=== PATIENT | female | born 1995 | race Caucasian/White ===

== ENCOUNTER 2020-10-27 11:34 | Outpatient (CLI) | payer OTHER, SELFPAY ==
[~2020-10-27] VITALS: Ht 162.6 cm; Wt 99.2 kg
[2020-10-27 11:58] VITALS: BP 132/75
[2020-10-27] MEDS ORDERED: ACET325C5 PO (12:06)
[2020-10-27] MEDS ORDERED: FOLI400T PO (12:06)
[2020-10-27] MEDS ORDERED: ASPI81CH33 PO (12:06)
[2020-10-27] MEDS ORDERED: NOXI1TAB PO (12:06)
[2020-10-27] MEDS ORDERED: CLAR10CA3 PO (12:06)
[2020-10-27] MEDS ORDERED: PRENTAB9 PO (12:06)
[2020-10-27 13:56] LABS: APPEARANCE, URINE CLEAR (CLEAR); BACTERIA, URINE AUTO NEGATIVE (NEGATIVE); BILIRUBIN, URINE AUTO NEGATIVE (NEGATIVE); BLOOD, URINE BLOOD NEGATIVE (NEGATIVE); COLOR, URINE COLORLESS (YELLOW); GLUCOSE, URINE (UA) AUTO NEGATIVE (NEGATIVE); KETONE, URINE AUTO NEGATIVE (NEGATIVE); LEUKOCYTE ESTERASE, URINE AUTO NEGATIVE (NEGATIVE); NITRITE, URINE AUTO NEGATIVE (NEGATIVE); PROTEIN, URINE AUTO NEGATIVE (NEGATIVE); RBC, URINE AUTO 0 /HPF (0-3); SQUAMOUS EPITHELIAL CELL UR AU 0 /HPF (0-6); UROBILINOGEN, URINE AUTO 0.2 mg/dL (0.0-2.0); WBC, URINE AUTO 0 /HPF (0-3)
[2020-10-27 15:23] LABS: CHLAMYDIA DNA AMPLIFICATION NEGATIVE (NEGATIVE); GC DNA AMPLIFICATION NEGATIVE (NEGATIVE)
== END 2020-10-27 13:50 | disposition home or self-care (01) ==
LOC: M LDO 11:34
PROVIDERS: ATTEND Registered Nurse
DX: O26.892 Other specified pregnancy related conditions, second trimester (principal); B37.3 Candidiasis of vulva and vagina; Z3A.22 22 weeks gestation of pregnancy
CPT/HCPCS: 81001; 87086; 87491; 87591; G0378; G0463

== ENCOUNTER 2021-02-15 08:41 | Outpatient (CLI) | payer OTHER ==
[~2021-02-15] VITALS: Ht 162.6 cm; Wt 102.9 kg
[~2021-02-15 08:41] MED LIST: ACET325C5 PO; ASPI81CH33 PO; CLAR10CA3 PO; FOLI400T13 PO; NOXI1TAB PO; PRENTAB9 PO
[2021-02-15 09:03] VITALS: BP 132/67
[2021-02-15 10:21] VITALS: BP 114/62
[2021-02-15 10:26] VITALS: BP 118/70
[2021-02-15 10:31] VITALS: BP 113/67
--- NOTE | 2021-02-15 18:53 | IPNPDOC ---
Text Note Date of Service The patient was seen on 02/15/21. NOTE Smitha is a 25yo at 37+6wks presenting for ECV for breech presentation. She believes is still breech today. Denies DFM, VB, LOF, or ctx's. history: Chiari malformation s/p surgical correction - had prior . IUD in place in early - removed at 12 weeks Asthma - albuterol INH PRN Depression/anxiety - emotional support offered, EB consultation h/o GHTN, GDM in previous - awareness Obesity complicating - NOB BMI 35 Vitals: normotensive, afebrile NST: reactive Miguel Barrera: rare ctx's [id number] PE: General: well-appearing, sitting upright in bed in NAD, conversing in full sentences, AAOx3 HEENT: NC/AT, airway patent and self-maintained CARDS: well-perfused, normal HR RESP: no exaggerated respiratory effort appreciated ABD: gravid, obese, nondistended, nontender Fundus: S=D, leopolds with breech presentation, nontender : deferred Ext: no edema TAUS: complete breech presentation with head on maternal left with spine maternal right. Fundal placenta, FRANK 12cm, +FM seen, +FCA at 140bpm PROCEDURE NOTE: Patient was counseled and written consent signed (see paper chart) for ECV. She desired to proceed. TAUS confirmed position Terbutaline 0.25mg given SQ Two attempts were made in forward somersault with ability to get presenting part out of the pelvis but due to fundal placenta, difficulty moving head. Attempted a backward somersault but patient had sharp pain on initiation therefore procedure aborted. In between each attempt, TAUS was performed confirming normal FHR and evaluation of presentation. TAUS confirmed persistent breech presentation at termination of procedure. Patient underwent prolonged monitoring for 2 hours with cat I FHR with baseline 140bpm with +accels, no decels, moderate variability. No ctx's seen on tocometry. Patient given 1000mg tylenol PO. Patient dispositioned home in stable condition with strict return precautions reviewed. Patient counseled to take 1000mg tylenol q8h. She may attempt to continue "spinning babies" maneuvers at home. Patient scheduled for NST at [place] [facility] DISPATCHER tomorrow at 1300. Patient scheduled for PLTCS on [id number]. All questions answered. Med rec done. WESLEY VERA DO Feb 15, 2021 10:39
[2021-02-18] MEDS ORDERED: MAGN100T PO (13:34)
[2021-02-18] MEDS ORDERED: PROAAER10 INH (13:35)
== END 2021-02-15 12:12 | disposition home or self-care (01) ==
LOC: M LDO 08:41
DX: O32.1XX0 Maternal care for breech presentation, not applicable or unspecified (principal); Z3A.37 37 weeks gestation of pregnancy
CPT/HCPCS: 59025; 59412; 76815; 96372; G0378; G0463; J3105

== ENCOUNTER 2021-02-25 05:28 | Inpatient (IN) | payer OTHER ==
[2021-02-25] VITALS (9 sets, daily range): BP systolic 105–133; BP diastolic 54–69
[~2021-02-25] VITALS: Ht 162.6 cm; Wt 102.9 kg
[~2021-02-25 05:28] MED LIST changes: +MAGN100T PO; +PROAAER10 INH
[2021-02-25] MEDS ORDERED: PRIL20TA2 PO (05:50)
[2021-02-25] MEDS ORDERED: CLINDAMYCIN 900 MG in IV 1 EA IV ONE (06:00)
[2021-02-25] MEDS: LR 1,000 ML IV SCH ×2 (06:00→12:55)
[2021-02-25] MEDS ORDERED: BICITRA 30ML SOLN UDC PO ONE (06:00)
[2021-02-25 06:25] LABS: HEMATOCRIT 36.7 % (36.0-47.0); HEMOGLOBIN 12.1 g/dl (12.0-15.5); MEAN CORPUSCULAR VOLUME 94.1 fl (80.0-96.0); PLATELET COUNT, AUTOMATED 238 10^3/uL (150-450); WHITE BLOOD COUNT 10.3 10^3/uL (4.0-10.0)
[2021-02-25] MEDS ORDERED: GENTAMICIN 500 MG in D5W 100 ML IV ONE (07:00)
[2021-02-25] MEDS ORDERED: NALOXONE INJ 0.4MG/1ML VIAL (J2310 PER 1MG) IV PRN ×2 (08:10)
[2021-02-25] MEDS ORDERED: ONDANSETRON 4MG/2ML VIAL IV PRN ×2 (08:10→09:55)
[2021-02-25] MEDS ORDERED: diphenhydrAMINE 50MG/ML VIAL (J1200) IV PRN (08:10)
[2021-02-25] MEDS ORDERED: NALBUPHINE HCL 10 MG/ML AMP (J2300) IV PRN ×2 (08:10→09:55)
[2021-02-25] MEDS ORDERED: METOCLOPRAMIDE INJ 10MG/2ML VIAL (J2765 PER 1) IV PRN (08:10)
[2021-02-25] MEDS ORDERED: ONDANSETRON 4MG/2ML VIAL As Ordered ONE (08:18)
[2021-02-25] MEDS ORDERED: OXYTOCIN INJ 10 UNITS/ML VIAL (J2590) As Ordered ONE (08:18)
[2021-02-25] MEDS ORDERED: MORPHINE PRES-FREE INJ 10 MG/10 ML VIAL (J2274) As Ordered ONE (08:18)
[2021-02-25] MEDS ORDERED: FAMOTIDINE/NS 20 MG/50 ML BAG (S0028) As Ordered ONE (08:18)
[2021-02-25] MEDS ORDERED: MEASLES,MUMPS,RUBELLA VACCINE INJ (MMR-II) (90707) SC SCH (09:20)
[2021-02-25] MEDS ORDERED: PERCOCET 5MG/325MG TAB PO PRN (09:20)
[2021-02-25] MEDS ORDERED: PROMETHAZINE 25 MG TAB PO PRN (09:20)
[2021-02-25] MEDS ORDERED: SIMETHICONE 80MG CHEW TAB PO PRN (09:20)
[2021-02-25] MEDS ORDERED: RHOGAM 300 MCG (1500 IU) INJ (J2790) IM SCH (09:20)
[2021-02-25] MEDS ORDERED: LR 1,000 ML IV SCH (09:55)
[2021-02-25] MEDS ORDERED: fentaNYL 100 MCG/2 ML INJECTION (J3010) IV PRN (09:55)
[2021-02-25] MEDS ORDERED: KETOROLAC 30 MG/ML 1ML VIAL As Ordered ONE (10:01)
[2021-02-25] MEDS: KETOROLAC 30 MG/ML 1ML VIAL IV SCH ×3 (10:03→21:53)
--- NOTE | 2021-02-25 13:50 | RO ---
OPERATIVE NOTE DATE OF OPERATION: 02/25/2021 PREOPERATIVE DIAGNOSES: 1. Persistent breech presentation. 2. Failed external cephalic version x2. 3. Obesity. POSTOPERATIVE DIAGNOSES: 1. Persistent breech presentation. 2. Failed external cephalic version x2. 3. Obesity. PROCEDURES: 1. External cephalic version attempt. 2. Primary low transverse section. SURGEON: Dr. Tay Mendoza CABLE HOOKER: Dr. Cass Sadler ANESTHESIA: Spinal IV FLUIDS: 1000 mL LR. URINE OUTPUT: 150 mL via Mckenzie catheter. EBL: 500 mL. ANTIBIOTICS: Gentamicin and Clindamycin before case start. OPERATIVE FINDINGS: Viable male infant found and delivered in marycruz breech presentation. weight was 3260 gm or 7 pounds 3 ounces. Apgars 8 and 9. Normal appearing uterus, normal appearing ovaries and fallopian tubes bilaterally. Normal appearing placenta. COMPLICATIONS: None INDICATIONS FOR PROCEDURE: Smitha is a 25-year-old female who was diagnosed with breech presentation at approximately 36 weeks gestation. She underwent an ECV attempt at 37-1/2 weeks which was unsuccessful. We then scheduled her for primary low transverse section on 02/25/2021 at 39 and 2 weeks gestation. She desired to proceed with another ECV attempt beforehand. Another attempt at ECV was made which was unsuccessful in the OR and the patient was counseled and consented for primary low transverse section. DESCRIPTION OF PROCEDURE: The risks, benefits, indications, and alternatives to the procedure were reviewed with the patient and informed consent was obtained. The patient was taken to the operating room where spinal anesthesia was obtained and found to be adequate. She was then prepped and draped in the usual sterile fashion in the dorsal supine position with a leftward tilt. A surgical time out was then performed and the patient's identity and planned procedure were verified with the operative team. A pfannenstiel skin incision was then made with the scalpel and carried through to the underlying layer of fascia. The fascia was incised in the midline and the incision was extended laterally with Stephens scissors. The superior aspect of the fascial incision was then grasped with Julia clamps, elevated, and the underlying rectus muscles were dissected off bluntly and with stephens scissors. Attention was turned to the inferior aspect of the incision, which in similar fashion was grasped, tented up with Julia clamps, and the rectus muscles were dissected off with Stephens scissors. The rectus muscles were then in the midline. The peritoneum was identified, tented up, and entered bluntly. The peritoneal incision was then extended horizontally and superiorly with good visualization of the bladder. A Mobius self-retaining retractor was then inserted into the abdomen as means for exposure. The vesicouterine peritoneum was then identified and - using Metzenbaum scissors - a bladder flap was created and spread digitally. Next, the lower uterine segment was incised in a transverse fashion with the scalpel. Clear fluid was noted upon entry into the uterus. The uterine incision was then extended manually in a superolateral fashion. The was found to be in marycruz breech presentation. The baby was delivered atraumatically and without difficulty through the hysterotomy site using the usual breech maneuvers. The cord was then doubly clamped and cut. The infant was then handed off to the waiting pediatricians. The placenta was then removed manually with gentle traction on the cord. The uterus was then exteriorized and cleared of all clots and debris. The uterine incision was then repaired with #0 Monocryl suture in a running locked fashion. A second layer of #0 Monocryl was then used to imbricate the hysterotomy in a vertical fashion. An additional [id number] suture was then placed on the right lateral aspect of the hysterotomy due to persistent oozing. Excellent hemostasis was then achieved. Irrigation was then performed. The uterus was reintroduced into the abdomen. The hysterotomy was re-inspected and found to be completely hemostatic. The pericolic gutters were inspected and clear of all clots and debris. The Mobius self-retaining retractor was then removed. The patient's peritoneum was closed with 3-0 Vicryl suture in a running fashion. The fascia was closed with #0 Vicryl suture in a running fashion. The subcutaneous fat was closed with 3-0 Vicryl suture in a running fashion. The skin was then closed with 4-0 Monocryl suture in a subcuticular fashion. The incision was then dressed and a pressure dressing was applied. At the completion of the case, a bimanual exam was performed which revealed good uterine tone and minimal vaginal bleeding. The patient tolerated the procedure well. Sponge, instrument, needle, and lap counts were correct x3. The patient was taken to the recovery room in stable condition. RUIZ
[2021-02-25] MEDS: DOCUSATE SODIUM 100MG CAPSULE PO PRN (21:53)
[2021-02-26 02:00] VITALS: BP 126/56
[2021-02-26] MEDS: KETOROLAC 30 MG/ML 1ML VIAL IV SCH (03:29)
[2021-02-26 05:53] VITALS: BP 134/70
--- NOTE | 2021-02-26 06:56 | IPNPDOC ---
Progress Note Date of Service: Feb 26, 2021 Day#: 1 Progress Note Smitha is a 25-year-old female who was diagnosed with breech presentation at approximately 36 weeks gestation. She underwent an ECV attempt at 37-1/2 weeks which was unsuccessful. We then scheduled her for primary low transverse section on 02/25/2021 at 39 and 2 weeks gestation. She desired to proceed with another ECV attempt beforehand. Another attempt at ECV was made which was unsuccessful in the OR and the patient was underwent a primary low transverse section. Viable male infant found and delivered in marycruz breech presentation. weight was 3260 gm or 7 pounds 3 ounces. Apgars 8 and 9. Normal appearing uterus, normal appearing ovaries and fallopian tubes bilaterally. Normal appearing placenta. EBL: 500 mL. She is currently POD1 and is doing well. She has been ambulating, voiding spontaneously without issue and tolerating regular diet. Breast feeding without issue. Reports lochia is like a normal period. Patient is ambulating well. Reports some cramping with . Denies any pain. Voiding without difficulty. Reports has not yet passed flatus. Denied n/v/d, cp, sob, ingram, visual changes, f/c, urinary sx. OBJECTIVE: VITAL SIGNS: Within normal limits, afebrile. Alert and oriented times three. No increased WOB Heart rate: non-tachy Abdomen: Fundus firm at U-2. Soft, NTTP. Pfannensteil incision covered with steri strips, clean, dry, well approx, no erythema or discharge Minimal lochia. ASSESSMENT: 25yo POD1 s/p PLTCD after failed ECV. Vitals within normal limits, afebrile, hemodynamically stable with no evidence of infection. PLAN: 1. Discharge to home likely tomorrow 2. Tylenol, oxyir, and Motrin for pain. 3. Encourage breast feeding and ambulation. 4. Desires paragurd in 6wk for contraception 5. Routine PP visit in 6 weeks in clinic. 6. Discussed return precautions at length. VS, I&O, 24H, Fishbone Vital Signs/I&O Vital Signs Date Time Temp Pulse Resp B/P (MAP) Pulse Ox O2 Delivery O2 Flow Rate FiO2 02/26/21 05:53 97.8 84 18 134/70 (91) 98 Room Air I&O- Last 24 Hours up to 6 AM 02/26/21 06:00 Intake Total 1200 ml Output Total 1760 ml Balance -560 ml DEVAN ROLLE DO Feb 26, 2021 06:56
[2021-02-26] MEDS: PRENATAL VITAMINS CHEWABLE TABLET PO SCH (07:51)
[2021-02-26 08:13] LABS: HEMATOCRIT 30.4 % (36.0-47.0); MEAN CORPUSCULAR HEMOGLOBIN 31.6 pg (27.0-33.0); MEAN CORPUSCULAR HGB CONC 33.2 g/dl (32.0-36.5); PLATELET COUNT, AUTOMATED 164 10^3/uL (150-450); WHITE BLOOD COUNT 9.7 10^3/uL (4.0-10.0)
[2021-02-26 08:14] LABS: HEMOGLOBIN 10.1 g/dl (12.0-15.5)
[2021-02-26] MEDS ORDERED: BOOSTRIX/ADACEL VACCINE (DIPHTH/PERTUSS/ACELL/TETANUS) 0.5ML SYR IM ONE (09:00)
[2021-02-26 10:00] VITALS: BP 119/58
[2021-02-26] MEDS: IBUPROFEN 800 MG TAB PO SCH ×2 (11:59→19:48)
[2021-02-26 14:00] VITALS: BP 130/69
[2021-02-26 18:00] VITALS: BP 125/55
[2021-02-26] MEDS: DOCUSATE SODIUM 100MG CAPSULE PO PRN (21:15)
[2021-02-26] MEDS: PERCOCET 5MG/325MG TAB PO PRN (21:15)
[2021-02-26 21:49] VITALS: BP 145/70
[2021-02-27 02:04] VITALS: BP 110/55
[2021-02-27] MEDS: IBUPROFEN 800 MG TAB PO SCH ×2 (03:52→11:36)
--- NOTE | 2021-02-27 05:09 | DS.PDOC ---
Discharge Summary General Date of Admission Feb 25, 2021 at 05:28 Date of Discharge 02/27/21 Discharge Summary PROCEDURES PERFORMED DURING STAY: 1. External cephalic version 2. Primary low transverse section ADMITTING DIAGNOSES: 1. Breech presentation 2. 39 weeks DISCHARGE DIAGNOSES: 1. Breech presentation 2. 39 weeks COMPLICATIONS/CHIEF COMPLAINT: Breech Presentation. HISTORY OF PRESENT ILLNESS: Renate is a 25yo who presented to L&D for planned ECV at 39wks for breech presentation. HOSPITAL COURSE: Renate was admitted to L&D where she was taken to the operating room. She underwent an attempt at ECV which failed and she therefore underwent an uncomplicated primary low transverse section becoming a . She was then taken to the PACU for immediate post-operative care then transferred to the [facility] for continued inpatient care. She had her mcqueen catheter re moved on POD#0. On day of discharge, she was ambulating without difficulty, tolerating regular diet, voiding spontaneously and pain controlled on oral pain medications. DISCHARGE MEDICATIONS: Please see below. ALLERGIES: Please see below. PHYSICAL EXAMINATION ON DISCHARGE: VITAL SIGNS: Please see below. GENERAL: Well-appearing in NAD HEENT: NC/AT CARDIOVASCULAR EXAMINATION: well-perfused RESPIRATORY EXAMINATION: No cough, no exaggerated respiratory effort appreciated ABDOMINAL EXAMINATION: soft, nondistended, appropriately tender to palpation in bilateral lower quadrants INCISION: c/d/i with steri strips in place, dressing previously removed EXTREMITIES: no edema SKIN: warm, pink, dry LABORATORY DATA: Please see below. PROGNOSIS: Good ACTIVITY: Pelvic rest and no lifting >15lbs for 6 weeks DIET: Regular as tolerated DISCHARGE PLAN: to home today DISPOSITION: to home DISCHARGE INSTRUCTIONS: 1. No lifting >15lbs and no intercourse or anything in the vagina for 6 weeks 2. Monitor for signs of fever >100.4, worsening pain not responsive to pain medication, heavy bleeding, or concerns for infection in the incision. DISCHARGE CONDITION: Stable TIME SPENT ON DISCHARGE: Greater than 20 minutes. Vital Signs/I&Os Vital Signs Date Time Temp Pulse Resp B/P (MAP) Pulse Ox O2 Delivery O2 Flow Rate FiO2 02/27/21 02:04 98.1 75 18 110/55 (73) 98 Room Air Laboratory Data Labs 24H Laboratory Tests 2 02/26/21 07:27: Nucleated Red Blood Cells % (auto) 0.0 CBC/BMP Laboratory Tests 02/26/21 07:27 Discharge Medications Scheduled Loratadine (Claritin) 10 Mg Capsule, 1 CAP PO DAILY for allergy symptoms, (Reported) No.137/Iron/Folic Acd ( Vitamin Tablet) 1 Each Tablet, 1 TAB PO DAILY, (Reported) Scheduled PRN Acetaminophen (Tylenol) 325 Mg Capsule, 650 MG PO PRN PRN for PAIN OR FEVER, (Reported) Albuterol Sulfate (Proair Hfa) 8.5 Gm Hfa.aer.ad, 2 PUFF INH for SOB/WHEEZING, (Reported) Magnesium Citrate (Magnesium Citrate) 100 Mg Tablet, 350 MG PO PRN PRN for LOWER BACK PAIN, (Reported) Omeprazole Magnesium (Prilosec Otc) 20 Mg Tablet.dr, 20 MG PO DAILYPRN PRN for HEARTBURN, (Reported) Allergies Coded Allergies: amoxicillin (Verified Allergy, Unknown, 02/18/21) cephalexin (Verified Allergy, Unknown, 02/18/21) clarithromycin (Verified Allergy, Unknown, 02/18/21) erythromycin base (Verified Allergy, Unknown, 02/18/21) sulfisoxazole (Verified Allergy, Unknown, 02/18/21) WESLEY VERA DO Feb 27, 2021 05:09
[2021-02-27 06:19] VITALS: BP 130/76
[2021-02-27] MEDS: PRENATAL VITAMINS CHEWABLE TABLET PO SCH (08:12)
[2021-02-27 10:00] VITALS: BP 139/60
[2021-02-27] MEDS: PERCOCET 5MG/325MG TAB PO PRN (13:58)
== END 2021-02-27 14:10 | disposition home or self-care (01) | DRG 773 ==
LOC: M LDI 05:28 → M OBS 10:45
PROVIDERS: ADMIT Obstetrics & Gynecology; ATTEND Obstetrics & Gynecology
PROC: 10D00Z1 Extraction of Products of Conception, Low, Open Approach (ICD-10-PCS; principal; 2021-02-25 07:30)
DX: O32.1XX0 Maternal care for breech presentation, not applicable or unspecified (principal); O99.214 Obesity complicating childbirth; E66.9 Obesity, unspecified; Z3A.39 39 weeks gestation of pregnancy; Z37.0 Single live birth

== ENCOUNTER 2023-03-24 11:28 | Emergency (ER) | payer OTHER ==
[~2023-03-24] VITALS: Ht 162.6 cm; Wt 95.2 kg
[~2023-03-24 11:28] MED LIST changes: +PRIL20TA2 PO
[2023-03-24 11:31] VITALS: BP 152/81
[2023-03-24] MEDS ORDERED: VENL150C43 (11:48)
[2023-03-24] MEDS ORDERED: ONDANSETRON 4MG 2ML VIAL IV ONE (11:50)
[2023-03-24] MEDS ORDERED: NS 1,000 ML IV ONE (11:50)
[2023-03-24 12:23] LABS: BASO % 0.3 % (0.0-1.0); EOS # 0.1 10^3/uL (0.0-0.5); EOS % 1.7 % (0.0-3.0); HEMATOCRIT 41.6 % (36.0-47.0); LYMPH # 1.4 10^3/uL (1.5-5.0); LYMPH % 38.5 % (24.0-44.0); MEAN CORPUSCULAR HEMOGLOBIN 30.8 pg (27.0-33.0); MEAN CORPUSCULAR HGB CONC 33.7 g/dl (32.0-36.5); MEAN CORPUSCULAR VOLUME 91.4 fl (80.0-96.0); MONO # 0.4 10^3/uL (0.0-0.8); MONO % 12.4 % (2.0-8.0); NEUTROPHILS # 1.7 10^3/uL (1.5-8.5); NEUTROPHILS % 47.1 % (36.0-66.0); PLATELET COUNT, AUTOMATED 233 10^3/uL (150-450); RED BLOOD COUNT 4.55 10^6/uL (4.00-5.40); WHITE BLOOD COUNT 3.6 10^3/uL (4.0-10.0)
[2023-03-24 12:47] LABS: LIPASE 34 U/L (12-53)
[2023-03-24 12:49] LABS: ALBUMIN 3.6 G/DL (3.2-5.2); ALKALINE PHOSPHATASE 51 U/L (46-116); ALT/SGPT 17 U/L (7.0-40); AST/SGOT 17 U/L (<34); BILIRUBIN,TOTAL 0.5 MG/DL (0.3-1.2); BLOOD UREA NITROGEN 14 MG/DL (9-23); CALCIUM LEVEL 8.8 MG/DL (8.5-10.1); CARBON DIOXIDE LEVEL 28 MMOL/L (20-31); CHLORIDE LEVEL 104 MMOL/L (98-107); CREATININE FOR GFR 0.73 MG/DL (0.55-1.30); GLOMERULAR FILTRATION RATE > 60.0 (>60); GLUCOSE, FASTING 97 MG/DL (60-100); POTASSIUM SERUM 4.3 MMOL/L (3.5-5.1); SODIUM LEVEL 138 MMOL/L (136-145); TOTAL PROTEIN 7.3 G/DL (5.7-8.2)
[2023-03-24 12:55] LABS: HCG, SERUM QUALITATIVE NEGATIVE (NEGATIVE)
[2023-03-24] MEDS ORDERED: ISOVUE-370 76% 100ML VIAL As Ordered ONE (13:29)
[2023-03-24] MEDS ORDERED: ONDA4TAB6 PO (14:01)
== END 2023-03-24 14:14 | disposition home or self-care (01) ==
LOC: M ED 11:28
DX: A09 Infectious gastroenteritis and colitis, unspecified (principal); Z88.1 Allergy status to other antibiotic agents; Z79.899 Other long term (current) drug therapy
CPT/HCPCS: 74177; 80053; 83605; 83690; 84703; 85025; 96374; 99283; J2405; Q9967